=== PATIENT | female | born 2005 | race Caucasian/White ===

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

== ENCOUNTER 2024-04-30 14:38 | Emergency (ER) | payer OTHER, SELFPAY ==
--- NOTE | ~2024-04-30 | XR_ITS ---
3 VIEWS LEFT ANKLE XR ankle RT min 3V Ordering provider: Ewelina Velazquez PA-C History: . rolled ankle, pain to R lateral ankle . Comparison: None. FINDINGS: BONES: No acute fracture or dislocation. JOINT SPACES: The ankle mortise is normal. SOFT TISSUES: Normal. IMPRESSION: No acute osseous abnormality right ankle. Reviewed, dictated and finalized at location A.
[2024-04-30 14:43] VITALS: BP 151/96; PULSE 108; RESP 18; TEMP 36.3; O2SAT 95
--- NOTE | 2024-04-30 14:45 | ED.LOWEXIN ---
HPI - Extremity Injury (Lower) General Chief Complaint: Extremity Injury, Lower Stated Complaint: R ankle pain Time Seen by Provider: 04/30/24 14:44 Source: patient Mode of arrival: ambulatory Limitations: no limitations History of Present Illness HPI Narrative: Patient is a 19-year-old female who presents the ED with report of right ankle pain. Patient reports she was walking and stepped in a crack in the sidewalk, rolling her right ankle inward. She states she heard a pop. has developed swelling to lateral ankle. Is able to ambulate, but has pain with this. Has not taken anything for pain. Denies any other injuries. Denies numbness or tingling. Related Data Allergies Allergy/AdvReac Type Severity Reaction Status Date / Time No Known Allergies Allergy Mild Verified 12/06/23 11:07 Review of Systems Review of Systems: CONSTITUTIONAL: Denies fever, chills, or sweats. MUSCULOSKELETAL: See HPI. NEUROLOGIC: Denies headache, dizziness, numbness, or weakness. All systems reviewed & are unremarkable except as noted in HPI and below Exam Narrative: GENERAL: Well appearing, well-nourished, non-toxic, in no acute distress. HEAD: Normocephalic, atraumatic. RESPIRATORY: Airway patent, respirations nonlabored. CARDIOVASCULAR: Regular rate and rhythm without murmurs, rubs, or gallops. Pedal pulses intact and easily palpable. MUSCULOSKELETAL: Moves all extremities. No gross deformities. mild swelling noted to lateral malleoli of right ankle, diffuse tenderness over lateral malleoli extending across anterior lateral foot. Sensation intact. Capillary refill intact. No tenderness throughout knee joint. SKIN: Warm, dry, normal color. NEURO: A&O X3. Speech clear. PSYCHIATRIC: Appropriate mood and affect. Normal interaction. Course Vital Signs Vital signs: Vital Signs Temperature 97.4 F L 04/30/24 14:43 Pulse Rate 108 H 04/30/24 14:43 Respiratory Rate 18 04/30/24 14:43 Blood Pressure 151/96 H 04/30/24 14:43 Pulse Oximetry 95 04/30/24 14:43 Oxygen Delivery Room Air 04/30/24 14:43 Temperature 97.4 F L 04/30/24 14:43 Pulse Rate 108 H 04/30/24 14:43 Respiratory Rate 18 04/30/24 14:43 Blood Pressure 151/96 H 04/30/24 14:43 Pulse Oximetry 95 04/30/24 14:43 Oxygen Delivery Room Air 04/30/24 14:43 MDM - Extremity Injury (Lower) MDM Narrative Medical decision making narrative: Patient's injury is consistent with musculoskeletal etiology. No signs of neurologic or vascular compromise on physical examination. Compartments are soft without signs of compartment syndrome. XR w/o acute fracture. Pain is consistent with ankle sprain. Patient is felt to be stable for discharge home and further outpatient management and treatment. given Fernie bandage and crutches in the ED. Advised to continue ibuprofen, Tylenol as needed for pain. Discussed rice therapy, reasons to return. Patient given orthopedic information for follow-up as needed. Discharged in stable condition. Medical Records Attestation: I reviewed the patient's medical records. Imaging Data Attestation: I personally reviewed and interpreted this imaging study as follows: Radiologist's impression: ITS Impressions Ankle X-Ray 04/30/24 15:25 IMPRESSION: No acute osseous abnormality right ankle. Discharge Plan Discharge Clinical Impression: Sprain of right ankle Qualifiers: Encounter type: initial encounter Involved ligament of ankle: unspecified ligament Qualified Code(s): S93.401A - Sprain of unspecified ligament of right ankle, initial encounter Patient Disposition: Home, Self-Care Condition: Stable Instructions: Antibiotic Form, Ankle Sprain (ED), P.R.I.C.E. Treatment (ED) Additional Instructions: Your X-ray did not show any evidence of fracture. You likely have an ankle sprain. Continue Tylenol and ibuprofen as needed for pain. Utilize Fernie bandage for compression and support. Utilize
[2024-04-30] MEDS: IBUPROFEN 600 MG TABLET PO (15:09)
== END 2024-04-30 16:04 | disposition home or self-care (01) ==
LOC: ANHED 16:02
PROVIDERS: Emergency Provider Physician Assistant
DX: S93.401A Sprain of unspecified ligament of right ankle, initial encounter (principal); X50.9XXA Other and unspecified overexertion or strenuous movements or postures, initial encounter
CPT/HCPCS: 73610; 99283; A9270

== ENCOUNTER 2024-05-05 11:51 | Emergency (ER) | payer OTHER, SELFPAY ==
[2024-05-05 11:53] VITALS: BP 140/93; PULSE 84; RESP 18; TEMP 37.1; O2SAT 100
--- NOTE | 2024-05-05 12:10 | ED_ITS ---
HPI - Extremity Injury (Lower) General Chief Complaint: Extremity Injury, Lower Stated Complaint: r ankle swelling Time Seen by Provider: 05/05/24 11:57 Source: patient Mode of arrival: ambulatory Limitations: no limitations History of Present Illness HPI Narrative: 19-year-old here with complaints of right ankle pain and swelling. Patient states that she was seen have week ago for ankle sprain she. Patient states that she went back to work she has to wear steel-toed boots and she is unable to wear the boot because of ankle swelling and she wants work note. complaint: ankle injury Related Data Allergies Allergy/AdvReac Type Severity Reaction Status Date / Time No Known Allergies Allergy Mild Verified 05/05/24 11:57 Review of Systems Review of Systems: All systems reviewed & are unremarkable except as noted in HPI and below Constitutional: Constitutional: Reports no additional constitutional complaints Eyes: Eyes: Reports no additional eye complaints Cardiovascular: Cardiovascular: Reports no additional cardiovascular complaints Gastrointestinal: Gastrointestinal: Reports no additional gastrointestinal complaints Musculoskeletal: Musculoskeletal: Reports as per HPI Psychiatric: Psychiatric: Reports no additional psychiatric complaints Endocrine: Endocrine: Reports no additional endocrine complaints Exam Narrative: GENERAL: Well-appearing, well-nourished, and in no acute distress. HEAD: Normocephalic, atraumatic. EYES: PERRLA and EOMI. ENT: Nares clear, no rhinorrhea or epistaxis. Mucous membranes moist. NECK: Supple. CHEST: Clear to auscultation. No respiratory distress. HEART: Regular rate and rhythm. No murmur heard. Normal peripheral pulses. EXTREMITIES: Normal range of motion. No edema. examination of the right ankle shows no obvious soft tissue swelling mild bruising noted the posterior aspect of the ankle. SKIN: Warm, dry, no rash. NEURO: No focal deficits. Alert and oriented x3. PSYCH: Normal mood and affect. Course Vital Signs Vital signs: Vital Signs Temperature 37.1 C 05/05/24 11:53 Pulse Rate 84 05/05/24 11:53 Respiratory Rate 18 05/05/24 11:53 Blood Pressure 140/93 H 05/05/24 11:53 Pulse Oximetry 100 05/05/24 11:53 Oxygen Delivery Room Air 05/05/24 11:53 Temperature 37.1 C 05/05/24 11:53 Pulse Rate 84 05/05/24 11:53 Respiratory Rate 18 05/05/24 11:53 Blood Pressure 140/93 H 05/05/24 11:53 Pulse Oximetry 100 05/05/24 11:53 Oxygen Delivery Room Air 05/05/24 11:53 Discharge Plan Discharge Clinical Impression: Ankle sprain and strain Condition: Stable Instructions: Ankle Sprain (DC) Prescriptions: No Action pseudoephedrine HCl [12 Hour Decongestant] 120 mg tablet extended release 120 mg PO Q12H PRN (Reason: nasal congestion) Qty: 20 0RF fluticasone propionate [Flonase Allergy Relief] 50 mcg/actuation spray,suspension 2 spray NASAL DAILY 14 Days Qty: 15.8 0RF Rx Instructions: administer into each nostril Follow-up/Referrals: PHYSICIAN,PERSONAL SUPPORT WORKER [Non-Staff] - Sammy Early MD [Physician] - Stand Alone Forms: Work/School Release IP Time of Disposition: 12:15
== END 2024-05-05 12:25 | disposition home or self-care (01) ==
PROVIDERS: Emergency Provider Family Medicine
DX: S93.401D Sprain of unspecified ligament of right ankle, subsequent encounter (principal); S96.911D Strain of unspecified muscle and tendon at ankle and foot level, right foot, subsequent encounter; X58.XXXD Exposure to other specified factors, subsequent encounter
CPT/HCPCS: 99281

== ENCOUNTER 2025-05-15 09:28 | Emergency (ER) | payer OTHER, SELFPAY ==
--- NOTE | ~2025-05-15 | CT_ITS ---
EXAMINATION: CT abdomen pelvis wo con DATE: 05/15/2025 13:08 INDICATION: Flank pain post fall TECHNIQUE: Computed tomography (CT) of the abdomen and pelvis was performed without intravenous contr ast. Automated exposure control and iterative reconstruction technique were employed. The dose-length product was 857.26 mGy-cm. COMPARISON: None FINDINGS: Lung bases are clear. Heart size normal. No pericardial or pleural effusion. Liver, gallbladder, sple en, pancreas, bilateral adrenal glands and kidneys are normal. No urolithiasis or hydronephrosis. The re is diffuse wall thickening of the colon consistent with colitis. Small bowel and appendix are norm al. Bladder, uterus and bilateral adnexa are unremarkable. No free intraperitoneal gas or fluid. Ther e are several mildly prominent but still normal-sized likely reactive lymph nodes along the ileocolic chain. No pathologically enlarged abdominal or pelvic lymphadenopathy. Bones are unremarkable. IMPRESSION: 1. Diffuse wall thickening of the colon consistent with colitis which could be infectious, inflammato ry or ischemic in etiology. Reviewed, dictated and finalized at location A. IMPRESSION: 1. Diffuse wall thickening of the colon consistent with colitis which could be infectious, inflammatory or ischemic in etiology.
[2025-05-15 09:49] VITALS: BP 140/90; PULSE 111; RESP 18; TEMP 36.3; O2SAT 100
[2025-05-15 10:14] VITALS: BP 111/89; PULSE 106; PULSE 115; RESP 15; TEMP 36.3; O2SAT 98
[2025-05-15 10:53] LABS: BEDSIDEPREGUCG Negative (Negative)
--- NOTE | 2025-05-15 10:57 | ED.GENADULT ---
HPI - General Adult General Chief complaint: Abdominal Pain Stated complaint: ABD Pain w/ Diarrhea Time Seen by Provider: 05/15/25 10:15 History of Present Illness HPI narrative: Patient is a 20-year-old female who presents ER with abdominal pain. Ongoing over last couple days. She has bloating and cramping as well as nausea. She has had small volume loose stool. Borderline fevers at home. No aggravating nor alleviating factors. She has tried Tylenol and ibuprofen. Related Data Allergies Allergy/AdvReac Type Severity Reaction Status Date / Time No Known Allergies Allergy Mild Verified 05/15/25 09:52 [facility] Past Medical History Medical History (Updated 05/15/25 @ 13:27 by Hans Partida MD) Healthy female adult Surgical History Surgical History (Updated 05/15/25 @ 10:58 by Hans Partida MD) No history of previous surgery Exam Narrative: GENERAL: Well-appearing, well-nourished, and in no acute distress. HEAD: Normocephalic, atraumatic. ENT: Mucous membranes moist. NECK: Supple. CHEST: Clear to auscultation. No respiratory distress. HEART: Regular rate and rhythm. Normal peripheral pulses. ABDOMEN: Soft, nontender, nondistended. EXTREMITIES: Normal range of motion. No edema. NEURO: Alert and oriented x3. PSYCH: Normal mood and affect. Course Course Emergency Course: Trace blood in urine. Otherwise exam and labs unremarkable. Noncontrast CT scan shows colitis. Discharge home with supportive care. Vital Signs Vital signs: Vital Signs Temperature 97.4 F L 05/15/25 09:49 Pulse Rate 111 H 05/15/25 09:49 Respiratory Rate 18 05/15/25 09:49 Blood Pressure 140/90 05/15/25 09:49 Pulse Oximetry 100 05/15/25 09:49 Oxygen Delivery Room Air 05/15/25 09:49 Temperature 97.4 F L 05/15/25 10:14 Pulse Rate 89 05/15/25 12:58 Respiratory Rate 16 05/15/25 12:58 Blood Pressure 118/78 05/15/25 12:58 Pulse Oximetry 99 05/15/25 12:58 Oxygen Delivery Room Air 05/15/25 10:14 Medical Decision Making Vital Signs Vital Signs: Vital Signs Temperature 97.4 F L 05/15/25 09:49 Pulse Rate 111 H 05/15/25 09:49 Respiratory Rate 18 05/15/25 09:49 Blood Pressure 140/90 05/15/25 09:49 Pulse Oximetry 100 05/15/25 09:49 Oxygen Delivery Room Air 05/15/25 09:49 Temperature 97.4 F L 05/15/25 10:14 Pulse Rate 89 05/15/25 12:58 Respiratory Rate 16 05/15/25 12:58 Blood Pressure 118/78 05/15/25 12:58 Pulse Oximetry 99 05/15/25 12:58 Oxygen Delivery Room Air 05/15/25 10:14 Lab Data 05/15/25 10:50 05/15/25 10:50 Labs: Lab Results 05/15/25 05/15/25 Range/Units 10:50 10:51 WBC 9.3 (4.5-10.0) K/mm3 RBC 4.66 (4.2-5.4) M/mm3 Hgb 12.8 (12.0-15.0) g/dL Hct 39.6 (37.0-47.0) % MCV 85.0 (80-100) fl MCH 27.5 (26-34) pg MCHC 32.3 (32-36) g/dl RDW 14.1 (11.5-14.5) % Plt Count 223 (150-375) k/mm3 MPV 11.1 H (7.4-10.4) fl Immature Gran % (Auto) 0.2 (0-0.5) % Neut % (Auto) 81.6 H (45.5-73.1) % Lymph % (Auto) 9.8 L (18.3-44.2) % Garza % (Auto) 7.9 (2.6-8.5) % Eos % (Auto) 0.2 (0-4.4) % Baso % (Auto) 0.3 (0.2-1.2) % Lymph # (Auto) 0.91 (0.9-3.2) K/mm3 Garza # (Auto) 0.7 H (0.1-0.6) K/mm3 Eos # (Auto) 0.0 (0-0.3) K/mm3 Baso # (Auto) 0.0 (0.0-0.1) K/mm3 Abs Immat Gran (auto) 0.02 (0.00-0.031) K/mm3 Absolute Neuts (auto) 7.6 H (1.3-6.7) K/mm3 Absolute Nucleated RBC 0.000 (0.0-0.012) K/mm3 Nucleated RBC % 0.0 (0.0-0.2) % Sodium 136 L (137-145) mmol/L Potassium 4.2 (3.4-5.0) mmol/L Chloride 108 H (98-107) mmol/L Carbon Dioxide 19 L (22-30) mmol/L Anion Gap 9 (4-12) mmol/L BUN 7 (7-17) mg/dL Creatinine 0.63 L (0.7-1.0) mg/dL Estim Creat Clear Calc 126 ml/min Estimated GFR > 60 (59 - ) Glucose 84 (65-110) mg/dL Calcium 8.7 (8.4-10.2) mg/dL Total Bilirubin 0.4 (0.2-1.3) mg/dL AST 32 (14-36) U/L ALT 22 (6-35) U/L Alkaline Phosphatase 76 (38-126) U/L Total Protein 7.8 (6.3-8.2) g/dL Albumin 4.1 (3.5-5.1) g/dL Lipase 42 (23-300) U/L Urine Color Yellow (Yellow) Urine Appearance Clear (Clear) Urine pH 5.5 (5.0-9.0) Ur Specific [place] 1.023 (1.001-1.035) Urine Protein Trace (Negative) mg/dL Urine Glucose (UA) Negative (Negative) mg/dL Urine Ketones 1+ H (Negative) mg/dL Ur Blood (Man) 2+ H (Negative) Urine Nitrate Negative (Negative) Urine Bilirubin Negative (Negative) Urine Urobilinogen 0.2 (<2.0) mg/dL Leukocyte Esterase Rfl Negative (Negative) PIPPA/UL Urine RBC 3-5 H (0-2) /hpf Urine WBC 0-5 (0-3) /hpf Ur Squamous Epith Cells Occasional (Few) /hpf Urine Bacteria None seen /hpf Urine Casts 0-2 POC Urine HCG, Qual Negative (Negative) Imaging Data Radiologist's impression: ITS Impressions Abdomen/Pelvis CT 05/15/25 13:12 IMPRESSION: 1. Diffuse wall thickening of the colon consistent with colitis which could be infectious, inflammatory or ischemic in etiology. Discharge Plan Discharge Clinical Impression: Colitis Patient Disposition: Home Condition: Stable Instructions: Antibiotic Form, Colitis (ED) Additional Instructions: Please drink plenty of fluids at home. Return to the emergency department if you develop high fevers, have persistent severe abdominal pain, or have bloody stools or vomit, as these could be signs of a more serious medical emergency. Return to the emergency department if you are unable to keep down liquids because of severe nausea/vomiting. Your infection may be viral in nature but you are also being placed on metronidazole in hopes that this will shorten the duration of illness. Follow-up with your primary care doctor, if this reoccurs he may need to see a GI physician. Patient Language: Palestinian Prescriptions: New metronidazole 500 mg tablet 500 mg PO Q8H Qty: 21 0RF ondansetron 4 mg tablet,disintegrating 4 mg PO Q6H PRN (Reason: nausea and vomiting) Qty: 10 0RF No Action pseudoephedrine HCl [12 Hour Decongestant] 120 mg tablet extended release 120 mg PO Q12H PRN (Reason: nasal congestion) Qty: 20 0RF fluticasone propionate [Flonase Allergy Relief] 50 mcg/actuation spray,suspension 2 spray NASAL DAILY 14 Days Qty: 15.8 0RF Rx Instructions: administer into each nostril Follow-up/Referrals: PHYSICIAN NOT ON STAFF,NONSTAFF [Primary Care Provider] - 1 Week
[2025-05-15 11:05] LABS: Basophils Percent Auto 0.3 % (0.2-1.2); Eosinophils Percent Auto 0.2 % (0-4.4); Hematocrit 39.6 % (37.0-47.0); Hemoglobin 12.8 g/dL (12.0-15.0); Immature Granulocyte Absolute 0.02 K/mm3 (0.00-0.031); Immature Granulocyte Percent A 0.2 % (0-0.5); Lymphocytes Absolute Auto 0.91 K/mm3 (0.9-3.2); Lymphocytes Percent Auto 9.8 % (18.3-44.2); Mean Corpuscular HGB Conc 32.3 g/dl (32-36); Mean Corpuscular Hemoglobin 27.5 pg (26-34); Mean Platelet Volume 11.1 fl (7.4-10.4); Monocytes Absolute Auto 0.7 K/mm3 (0.1-0.6); Monocytes Percent Auto 7.9 % (2.6-8.5); Neutrophils Absolute Auto 7.6 K/mm3 (1.3-6.7); Neutrophils Percent Auto 81.6 % (45.5-73.1); Platelet Count Result 223 k/mm3 (150-375); Red Blood Count 4.66 M/mm3 (4.2-5.4); Red Cell Distribution Width 14.1 % (11.5-14.5); White Blood Count 9.3 K/mm3 (4.5-10.0)
[2025-05-15] MEDS: BELLADONNA ALK/PHENOB ELIX 10 ML, MAG HYDROX/ALUMINUM HYD/SIMETH 30 ML, LIDOCAINE 2% VI... PO (11:07)
[2025-05-15] MEDS: ONDANSETRON INJ 4 MG/2 ML VIAL IV PUSH (11:08)
[2025-05-15] MEDS: SODIUM CHLORIDE 0.9% IV 1,000 ML 999 ML IV CONT (11:08)
[2025-05-15 11:13] LABS: Add Urine Microscopic? YES; Appearance Urine Clear (Clear); Bacteria Urine None Seen /hpf; Bilirubin Urine Negative (Negative); Blood Urine 2+ (Negative); Color Urine Yellow (Yellow); Glucose Urine UA Negative (Negative); Ketones Urine 1+ mg/dL (Negative); Leukocyte Esterase Ur Negative LEU/UL (Negative); Nitrate Urine Negative (Negative); Non Pathogenic Casts 0-2; Protein Urine Trace mg/dL (Negative); Specific Grav Ur 1.023 (1.001-1.035); Squamous Epithelial Cell Urine Occasional /hpf (Few); Urobilinogen Urine 0.2 mg/dL (<2.0); WBC Urine 0-5 /hpf (0-3); pH Urine 5.5 (5.0-9.0)
[2025-05-15 11:25] LABS: Alanine Aminotransferase 22 U/L (6-35); Albumin Level 4.1 g/dL (3.5-5.1); Alkaline Phosphatase 76 U/L (38-126); Anion Gap 9 mmol/L (4-12); Aspartate Amino Transferase 32 U/L (14-36); Bilirubin,Total 0.4 mg/dL (0.2-1.3); Blood Urea Nitrogen 7 mg/dL (7-17); Calcium 8.7 mg/dL (8.4-10.2); Carbon Dioxide 19 mmol/L (22-30); Chloride 108 mmol/L (98-107); Estimated CRCL calculation 126 ml/min; Estimated Glomerular Filt Rate > 60; Glucose 84 mg/dL (65-110); Lipase 42 U/L (23-300); Potassium 4.2 mmol/L (3.4-5.0); Sodium 136 mmol/L (137-145); Total Protein 7.8 g/dL (6.3-8.2)
[2025-05-15 12:58] VITALS: BP 118/78; PULSE 89; RESP 16; O2SAT 99
[2025-05-15 13:45] VITALS: BP 119/83; PULSE 85; RESP 15; O2SAT 100
== END 2025-05-15 13:47 | disposition home or self-care (01) ==
PROVIDERS: Emergency Provider Emergency Medicine
DX: K52.9 Noninfective gastroenteritis and colitis, unspecified (principal)
CPT/HCPCS: 36415; 74176; 80053; 81001; 81025; 83690; 85025; 96361; 96374; 99284; A9270; J2405; J7030